=== PATIENT | male | born 1995 | race Caucasian/White ===

== ENCOUNTER 2022-10-27 13:40 | Emergency (ER) | payer SELFPAY ==
[~2022-10-27] VITALS: Ht 177.8 cm; Wt 81.6 kg
[2022-10-27 14:18] VITALS: BP 131/62
[2022-10-27] MEDS ORDERED: PENICILLIN G BENZATHINE 2.4 MMU/4 ML ML IM ONE ×2 (15:00→15:12)
== END 2022-10-27 16:15 | disposition home or self-care (01) ==
LOC: ER 13:40
DX: A64 Unspecified sexually transmitted disease (principal); N48.89 Other specified disorders of penis; Z60.2 Problems related to living alone
CPT/HCPCS: 99283; 86592; 86593; 96372; 36415; J0558